=== PATIENT | female | born 1985 | race Caucasian/White ===

== ENCOUNTER 2019-04-20 11:51 | Outpatient (CLI) | payer BC ==
[~2019-04-20] VITALS: Ht 165.1 cm; Wt 88.5 kg
[~2019-04-20 11:51] MED LIST: FRS325T PO; IBP600T1 PO; OXYC-12 PO; PREN1TAB39 PO
[2019-04-20] MEDS ORDERED: AMPH15TA PO (12:08)
[2019-04-20] MEDS ORDERED: ALPR0.25 PO (12:08)
[2019-04-20 13:16] LABS: BASOPHILS % (AUTO) 1 % (0-10); EOSINOPHILS # (AUTO) 0.1 10^3/uL (0.0-0.3); EOSINOPHILS % (AUTO) 2 % (0-10); HEMATOCRIT 41 % (35-52); HEMOGLOBIN 14.1 G/DL (11.5-16.0); LYMPHOCYTES # (AUTO) 2.1 X 10^3 (1.0-4.0); LYMPHOCYTES % (AUTO) 36 % (12-44); MEAN CORPUSCULAR HEMOGLOBIN 31 PG (25-34); MEAN CORPUSCULAR HGB CONC 35 G/DL (32-36); MEAN CORPUSCULAR VOLUME 89 FL (80-99); MEAN PLATELET VOLUME 11.5 FL (7.4-10.4); MONOCYTES # (AUTO) 0.4 X 10^3 (0.0-1.0); MONOCYTES % (AUTO) 6 % (0-12); NEUTROPHILS # (AUTO) 3.3 X 10^3 (1.8-7.8); NEUTROPHILS % (AUTO) 55 % (42-75); PLATELET COUNT 269 10^3/uL (130-400); RED CELL DISTRIBUTION WIDTH 12.2 % (10.0-14.5); WHITE BLOOD COUNT 5.9 10^3/uL (4.3-11.0)
[2019-04-23] MEDS ORDERED: IBUP-844 PO (09:42)
[2019-04-23] MEDS ORDERED: SIME80TA16 PO (09:42)
[2019-04-23] MEDS ORDERED: HYDR-34 PO (09:42)
[2019-04-23] MEDS ORDERED: DOCU100C37 PO (09:42)
== END 2019-04-20 14:32 | disposition home or self-care (01) ==
LOC: PREOP 11:51
PROVIDERS: ATTEND Obstetrics & Gynecology
DX: Z01.818 Encounter for other preprocedural examination (principal); Z11.2 Encounter for screening for other bacterial diseases; D06.0 Carcinoma in situ of endocervix
CPT/HCPCS: 36415; 85025; 86850; 86900; 86901; 87081

== ENCOUNTER 2019-04-23 09:01 | Day surgery (SDC) | payer BC ==
[2019-04-23] VITALS (10 sets, daily range): BP systolic 95–135; BP diastolic 59–86
[~2019-04-23] VITALS: Ht 165.1 cm; Wt 88.5 kg
[~2019-04-23 09:01] MED LIST changes: +ALPR0.25 PO; +AMPH15TA PO
[2019-04-23] MEDS ORDERED: BUPIVACAINE 0.25% 30 ML (SENSORCAINE) VIAL ONE (09:22)
[2019-04-23] MEDS ORDERED: LACTATED RINGERS 1,000 ML IV SCH ×2 (09:29→09:34)
--- NOTE | 2019-04-23 09:29 | Progress Note-Pre Operative ---
Pre-Operative Progress Note H&P Reviewed The H&P was reviewed, patient examined and no changes noted. 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
[2019-04-23] MEDS ORDERED: ZOLPIDEM 5 MG (AMBIEN) TAB PO PRN (09:30)
[2019-04-23] MEDS ORDERED: ONDANSETRON 4 MG/2 ML (SDV) Z0FRAN IV PRN (09:30)
[2019-04-23] MEDS ORDERED: ANTACID SUSP 30 ML UDC (MYLANTA) PO PRN (09:30)
[2019-04-23] MEDS ORDERED: KETOROLAC 30 MG/ML VIAL IV PRN (09:30)
[2019-04-23] MEDS ORDERED: DOCUSATE SODIUM 100 MG (COLACE) CAP PO PRN (09:30)
[2019-04-23] MEDS ORDERED: HYDROcodone/APAP 7.5 MG/325 MG (LORTAB, LORCET PLUS) TABLET PO PRN (09:30)
[2019-04-23] MEDS ORDERED: SIMETHICONE 80 MG (MYLICON) CHEW PO PRN (09:30)
[2019-04-23] MEDS ORDERED: CHLORASEPTIC LOZENGE MM PRN (09:30)
--- NOTE | 2019-04-23 09:31 | Discharge Inst-Women's Service ---
Discharge Inst-Women's Serv Depart Medication/Instructions New, Converted or Re-Newed RX: RX on Chart Consults/Follow Up Additional Follow Up: Yes Orders/Referrals Dr. Green in 7-10 days and in 8 weeks Activity Activity: Activity as Tolerated Driving Instructions: You May Drive (do not drive while taking hydrocodone) NO SMOKING: NO SMOKING Nothing Inside Vagina: No Douching, No Espino, No Tampons Diet Discharge Diet: No Restrictions Symptoms to Report to : Bleeding Excessive, Pain Increased, Fever Over 101 Degrees F, Vaginal Bleeding Increase, Questions/Concerns For Any Problems or Questions: Contact Your Physician Skin/Wound Care Infection Signs and Symptoms: Increased Redness, Foul Odor of Wound, Increased Drainage, Skin Itchy or Has a Rash, Increased Swelling, Temperature Above 101 F Operative Area Clean and Dry: Keep Incision Clean/Dry Stitches/[place]/Dermabond: Dermabond, Care of Stitches Bathing Instructions: ESTEFANÍA Reyes DO April 23, 2019 09:31
[2019-04-23] MEDS ORDERED: IBUP-844 PO (09:42)
[2019-04-23] MEDS ORDERED: HYDR-34 PO (09:42)
[2019-04-23] MEDS ORDERED: SIME80TA16 PO (09:42)
[2019-04-23] MEDS ORDERED: DOCU100C37 PO (09:42)
[2019-04-23] MEDS ORDERED: ceFAZolin 2 GM/50 ML NS 50 ML IV ONE (09:45)
[2019-04-23] MEDS ORDERED: metroNIDAZOLE 500MG/100ML IVPB 100 ML IV ONE (09:45)
[2019-04-23] MEDS ORDERED: MIDAZOLAM 2 MG/2 ML (VERSED) VIAL ONE ×2 (10:00→10:54)
[2019-04-23] MEDS ORDERED: ONDANSETRON 4 MG/2 ML (SDV) Z0FRAN ONE ×2 (10:01→10:53)
[2019-04-23] MEDS ORDERED: SCOPOLAMINE 1.5 MG (TRANSDERM-SCOP) PATCH ONE (10:01)
[2019-04-23] MEDS ORDERED: FAMOTIDINE 20MG/2ML IV (PEPCID) ONE (10:01)
[2019-04-23] MEDS: LACTATED RINGERS 1,000 ML IV PRN ×2 (10:12→12:00)
[2019-04-23] MEDS ORDERED: SCOPOLAMINE 1.5 MG (TRANSDERM-SCOP) PATCH TOP ONE (10:15)
[2019-04-23] MEDS ORDERED: MIDAZOLAM 2 MG/2 ML (VERSED) VIAL IV ONE (10:15)
[2019-04-23] MEDS ORDERED: ONDANSETRON 4 MG/2 ML (SDV) Z0FRAN IV ONE (10:15)
[2019-04-23] MEDS ORDERED: FAMOTIDINE 20MG/2ML IV (PEPCID) IV ONE (10:15)
[2019-04-23] MEDS ORDERED: ROCURONIUM 10 MG/ML 5 ML SYRINGE IV ONE (10:53)
[2019-04-23] MEDS ORDERED: proPOfol 200 MG/20 ML (DIPRIVAN) VIAL IV ONE (10:53)
[2019-04-23] MEDS ORDERED: DEXAMETHASONE 10 MG/ML (DECADRON) 1 ML VIAL ONE (10:53)
[2019-04-23] MEDS ORDERED: SEVOFLURANE (ULTANE) 15 ML INHAL SOLN ONE ×4 (10:53→12:20)
[2019-04-23] MEDS ORDERED: LIDOCAINE PF 2% 5 ML (XYLOCAINE) VIAL ONE (10:53)
[2019-04-23] MEDS ORDERED: fentaNYL INJECTION 100 MCG/2 ML AMP ONE (10:54)
[2019-04-23] MEDS ORDERED: PROMETHAZINE INJ 25 MG/ML (PHENERGAN) AMP IVP ONE (12:45)
[2019-04-23] MEDS ORDERED: ONDANSETRON 4 MG/2 ML (SDV) Z0FRAN IVP PRN (12:45)
[2019-04-23] MEDS ORDERED: KETOROLAC 30 MG/ML VIAL IVP ONE (12:45)
[2019-04-23] MEDS ORDERED: HYDROmorphone 2 MG/ML VIAL (DILAUDID) IV ONE (12:45)
[2019-04-23] MEDS ORDERED: morphine INJ 10 MG/ML 1ML (SYR OR VIAL) IVP ONE (12:45)
[2019-04-23] MEDS ORDERED: MEPERIDINE (DEMEROL) INJ 50 MG/ML IVP ONE (12:45)
[2019-04-23] MEDS ORDERED: fentaNYL INJECTION 100 MCG/2 ML AMP IVP ONE (12:45)
[2019-04-23] MEDS ORDERED: KETOROLAC 30 MG/ML VIAL ONE (12:56)
[2019-04-23] MEDS ORDERED: morphine INJ 10 MG/ML 1ML (SYR OR VIAL) ONE (12:56)
--- NOTE | 2019-04-23 13:40 | NUR ---
MECHE JAY admitted to room , with an admitting diagnosis of post op hysterectomy, on 04-23-19 from recovery via bed, accompanied by staff.MECHE JAY introduced to surroundings, call light, bed controls, phone, TV, temperature control, lights, meal times, smoking policy, visitor policy, side rail policy, bathrooms and showers. Patient Rights given to patient in the handbook. MECHE JAY verbalizes understanding that [facility] is not responsible for the loss or damage to any personal effects or valuables that are kept in the patients posession during their hospitalization. The following Patient Care Plans were discussed with the patient: Discharge Planning, pain management, post op care. MECHE JAY verbalizes understanding of Interdisciplinary Patient Education. Patient and/or family were informed about the Rapid Response Team and its purpose.
--- NOTE | 2019-04-23 14:40 | NUR ---
crackers given and ice water. family at bedside. scd's on. denies further need.
[2019-04-23] MEDS ORDERED: HYDROcodone/APAP 7.5 MG/325 MG (LORTAB, LORCET PLUS) TABLET PO ONE (15:00)
--- NOTE | 2019-04-23 19:00 | NUR ---
MECHE JAY demonstrates understanding of discharge instructions and accurately returns instructions upon questioning. Copy of Post-Discharge Instructions and Medication Discharge Instructions given to patient. MECHE JAY is able to manage continuing needs after discharge. Patients belongings returned to patient. Skin dry and intact; no breakdown noted. Patient discharged from [id number] on 04-23-19 at 1900. MECHE JAY left floor via w/c, accompanied by staff and family .
--- NOTE | 2019-04-23 23:03 | OPERATIVE REPORT ---
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 PROCEDURE: Robotic-assisted total laparoscopic hysterectomy with bilateral salpingectomy and right oophorectomy. SURGEON: Jd Gomez DO ANESTHESIA: General endotracheal. ESTIMATED BLOOD LOSS: Minimal. URINE OUTPUT: 300 mL clear at the end of procedure. FLUIDS: 1400 mL of lactated Ringer solution. FINDINGS: Grossly normal appearing uterus, bilateral fallopian tubes, grossly normal appearing left ovary, grossly normal appearing cervix, vagina and external female genitalia. The right ovary is densely adhesed to the right pelvic sidewall consistent with a history of either endometrioma or hemorrhagic cyst rupture in the past. There are adhesions of this as well to her colon. SPECIMENS SENT: Uterus, bilateral fallopian tubes and right ovary. INDICATIONS FOR PROCEDURE: This 34-year-old female. The patient has consulted me for an abnormal Pap smear and colposcopy. Biopsy was taken, which revealed a carcinoma in situ and endometrial curetting revealed adenocarcinoma in situ. I had the patient returned to discuss care plan including gave her the option of a conization due to positive endocervical component, but I recommended we proceed with a LEEP. She wished for a complete excisional procedure in which case, we did discuss rather than doing a D and C or endometrial biopsy with a LEEP. We discussed removal of the uterus. I discussed with the patient potential for invasive carcinoma that might be encountered in this procedure. However, due to the nature of the biopsy being in situ there were likely not be deep invasion and if there were it would be a little to minimal most likely. The possibility for deep invasion; however, was not excluded. We also discussed the risks of the procedure in detail including risk of bleeding, infection, damage to surrounding structures including, but not limited to bowel, bladder, ureter, kidneys, possible need for reoperation if anything should be damaged, possible long-term repercussions, possible laparotomy, possibility of risk from anesthesia and even . After everything were discussed with the patient in detail, consent was obtained in the preoperative area and the patient was taken to the operating room. DESCRIPTION OF PROCEDURE IN DETAIL: Once in the operating room, general anesthesia was found to be adequate. The patient was placed in dorsal lithotomy position, prepped and draped in normal sterile fashion. A Marsh catheter was placed at that point and time out was performed, I then placed a weighted speculum into the patient's vagina. Right angle retractor was used to visualize the cervix, which was grasped at 12 o'clock position using a long Allis clamp and 0 Vicryl suture was then placed in the anterior lip of the cervix and this was used in my retraction point and the Allis clamp was then removed. I then gently sound the uterine cavity depth was found to be 8 cm. I then gently dilated the cervix using Hegar dilators to allow placement of the Denisa uterine manipulator. An 8 cm tip and a 3.5 cm colpotomy ring was then placed. The uterine manipulator tip was placed within the endometrium. The balloon was deployed and the colpotomy ring was advanced around the vaginal fornix. Once this was done, I performed a change of gloves and took my attention to the abdomen where infraumbilically I infiltrated this area using 0.25% Marcaine. I made an 8 mm incision with a knife and directed a Veress needle through the incision until the intraperitoneal placement was confirmed using a saline drop test. An opening pressure of 5 mmHg was noted. I proceeded to maximum pressure of 15 mmHg, at which point I removed the Veress needle and introduced blunt da Elliott camera trocar directly into the incision. Once it is in place, I am able to confirm intraoperative placement using the da Elliott laparoscope. I then had the patient placed in steep Trendelenburg and made to visualize all my anatomy as demonstrated above. A brief scan of the upper abdominal anatomy appears grossly normal. I then placed two lateral trocars approximately 10 cm lateral to my infraumbilical trocar. These were both 8 mm incisions. The skin was infiltrated using 0.25% Marcaine, 8 mm incisions were made with a knife and the trocars were placed under direct visualization of the laparoscope. Once these trocars were in place, I brought in the da Elliott robot and docked in the appropriate fashion placing the vessel sealer in her left hand and monopolar bhavna in the right hand. I began with taking down the adhesions of this right ovary. In doing so, I took extra special care to not involve the bowel, which it is adhesed to. In the process of doing this, I actually ended up cutting into the ovary and ovarian stroma itself causing some bleeding of that ovary. Once it was freed up, I decided to remove that ovary due to the significant bleeding and damage as well as the chronic scar and adhesions involved with it. I started the uteroovarian ligament, bipolar cauterized and transected using the vessel sealer then grasped the infundibulopelvic ligament, bipolar cauterized and transected using the vessel sealer. Due to the fact that the ovary was bleeding, I took out both blood supplies and then starting at the infundibulopelvic ligament I took this dissection to the round ligament, bipolar cauterized and transected using the vessel sealer. Then I am able to grasp the entire broad ligament. I bipolar cauterized and transected using the vessel sealer down to the level of the lower uterine segment. I traced the ureter away from my dissection field the entire time I do this. I then the anterior and posterior leaflets of the broad ligament. The anterior leaflet dissection was taken around the anterior vaginal fornix. Posterior leaflet was taken around to the posterior vaginal fornix. This allows me to skeletonize the uterine vessels laterally, which I then bipolar cauterized and transected using the vessel sealer. A similar dissection is performed on the left side; however, sparing the ovary I assured at the uteroovarian ligament, bipolar cauterized and transected using vessel sealer. I created a window in the mesosalpinx and took this laterally using monopolar bhavna, amputating the fallopian tube from its surrounding blood supply and the mesosalpinx. I then grasped the round ligament, bipolar cauterized and transected using the vessel sealer. I am able to grasp the entire broad ligament. I bipolar cauterized and transected using vessel sealer down to the level of the lower uterine segment, at which point I the anterior and posterior leaflets. The anterior leaflet was taken down to the anterior vaginal fornix. The posterior leaflet dissection was taken around to the posterior vaginal fornix. This allowed me to skeletonize the uterine vessels laterally, which were then bipolar cauterized and transected using the vessel sealer. I then performed a colpotomy at 12 o'clock position. Using monopolar bhavna I took this circumferentially around the vaginal fornix amputating the cervix away from the vagina. I then removed the entire specimen through the vagina. I proceeded with closing the vaginal cuff and the lateral vaginal apices using 2-0 Vicryl suture in a [id number] fashion copiously spinning up to the uterosacral ligaments. I then closed the remainder of the cuff using 2-0 V-Loc in a running fashion, after which there was no active bleeding noted from any of my dissection planes. I then undocked the da Elliott robot and approached the case laparoscopically once more. I copiously irrigated the pelvis using normal saline. Once again, there was no active bleeding noted from any of my dissection planes. I placed FloSeal hemostatic agent over all my planes of dissection, after which I had the patient taken out of steep Trendelenburg and suctioned out any excess fluid and blood that runs down. I then removed the lateral trocars under direct visualization of the laparoscope. The infraumbilical trocar was left in place to release insufflation and to introduce 10 mL of 0.25% Marcaine into the peritoneal cavity for postoperative pain management. I then removed this trocar site as well. The skin was then reapproximated using 4-0 Monocryl interrupted subcuticular stitch. Dermabond was applied to the incision and Band-Aids were placed over these. The Marsh catheter was left in place. The patient tolerated the procedure well and was taken to recovery area in stable condition. Lap and sponge count was correct at the end of the procedure. Instrument count was correct as well. Two grams of Ancef and 500 mg of Flagyl were given preoperatively for infection prophylaxis. Job ID: [id number] DocumentID: [id number] Dictated Date: 04/23/2019 17:20:15 Materials And Processes Manager Date: 04/23/2019 23:02:38 Dictated By: JD GOMEZ DO
[2019-04-24] MEDS ORDERED: IBUPROFEN 600 MG (MOTRIN) TAB PO PRN (02:15)
== END 2019-04-23 19:00 | disposition home or self-care (01) ==
LOC: SDC 09:01 → LDRP 13:40 → SDC 19:00
PROVIDERS: ATTEND Obstetrics & Gynecology
DX: D06.0 Carcinoma in situ of endocervix (principal); N80.0 Endometriosis of uterus; N80.1 Endometriosis of ovary; J45.909 Unspecified asthma, uncomplicated; K21.9 Gastro-esophageal reflux disease without esophagitis; F17.210 Nicotine dependence, cigarettes, uncomplicated; E66.9 Obesity, unspecified; Z68.32 Body mass index [BMI] 32.0-32.9, adult; Z79.899 Other long term (current) drug therapy
CPT/HCPCS: 84703; 86850; 86900; 86901; 88309; 94664

== ENCOUNTER 2020-01-26 23:27 | Emergency (ER) | payer BC ==
[~2020-01-26] VITALS: Ht 165.1 cm; Wt 86.1 kg
[~2020-01-26 23:27] MED LIST changes: +DOCU100C37 PO; +HYDR-34 PO; +IBUP-844 PO; +SIME80TA16 PO
[2020-01-26] MEDS ORDERED: ANTACID SUSP 30 ML UDC (MYLANTA) PO ONE (23:45)
[2020-01-26] MEDS ORDERED: ONDANSETRON 4 MG/2 ML (SDV) Z0FRAN IVP ONE (23:45)
[2020-01-26] MEDS ORDERED: LIDOCAINE 2% VISCOUS 15 ML UDC PO ONE (23:45)
[2020-01-26] MEDS ORDERED: FAMOTIDINE 20MG/2ML IV (PEPCID) IVP ONE (23:45)
[2020-01-26 23:53] LABS: BASOPHILS % (AUTO) 0 % (0-10); EOSINOPHILS # (AUTO) 0.2 10^3/uL (0.0-0.3); EOSINOPHILS % (AUTO) 2 % (0-10); HEMATOCRIT 40 % (35-52); HEMOGLOBIN 13.8 G/DL (11.5-16.0); LYMPHOCYTES # (AUTO) 3.4 X 10^3 (1.0-4.0); LYMPHOCYTES % (AUTO) 28 % (12-44); MEAN CORPUSCULAR HEMOGLOBIN 30 PG (25-34); MEAN CORPUSCULAR HGB CONC 35 G/DL (32-36); MEAN CORPUSCULAR VOLUME 87 FL (80-99); MEAN PLATELET VOLUME 10.2 FL (7.4-10.4); MONOCYTES # (AUTO) 0.8 X 10^3 (0.0-1.0); MONOCYTES % (AUTO) 7 % (0-12); NEUTROPHILS # (AUTO) 7.5 X 10^3 (1.8-7.8); NEUTROPHILS % (AUTO) 63 % (42-75); PLATELET COUNT 313 10^3/uL (130-400); RED CELL DISTRIBUTION WIDTH 12.2 % (10.0-14.5); WHITE BLOOD COUNT 11.9 10^3/uL (4.3-11.0)
--- NOTE | 2020-01-26 23:55 | ED Chest Pain ---
General Chief Complaint: Chest Pain Stated Complaint: CP,RT ARM PAIN,SOB Nursing Triage Note: C/O CHEST PAIN "FEELS LIKE PRESSURE PUSHING FRONT AND BACK TOGETHER" Nursing Sepsis Screen: No Definite Risk Source: patient Exam Limitations: no limitations History of Present Illness Date Seen by Provider: Jan 26, 2020 Time Seen by Provider: 23:30 Initial Comments This 34-year-old woman presents to the emergency room with sudden onset of chest pressure radiating from the front central chest to her back. It is worse with inspiration. Pain started around 21:00 while sitting on the couch. She has associated nausea. She tried taking a shower and taking alprazolam that did not improve her symptoms much. She states her pain was 8/10 at onset. It is now 1/10. She denies fever or shortness of breath. She has had a mild dry cough. She quit smoking tobacco about 8 months ago. She occasionally drinks alcohol about twice a month. She denies any drug use. She denies any travel or recent sedentary time. She reports a remote history of GERD which she states has returned the last couple of days. Allergies and Home Medications Allergies Coded Allergies: Penicillins (Verified Allergy, Mild, HIVES, pt has received Ancef in the past w/o issue, 04/23/19) Home Medications Alprazolam 0.25 Mg Tablet, 0.25 MG PO TID PRN for ANXIETY, (Reported) Dextroamphetamine/Amphetamine 15 Mg Tablet, 15 MG PO DAILY, (Reported) Docusate Sodium 100 Mg Capsule, 100 MG PO BID PRN for CONSTIPATION-1ST LINE Prescribed by: ESTEFANÍA GOMEZ on [birth year]1942 Hydrocodone Bit/Acetaminophen 1 Ea Tablet, 2 EA PO Q6H PRN for Pain-See Instructions Prescribed by: ESTEFANÍA GOMEZ on 04/23/19941 Ibuprofen 600 Mg Tablet, 600 MG PO Q6H PRN for PAIN-MODERATE Prescribed by: ESTEFANÍA GOMEZ on 04/23/19941 Simethicone 80 Mg Tab.chew, 40 MG PO TID PRN for INDIGESTION 2ND LINE Prescribed by: ESTEFANÍA GOMEZ on 04/23/19941 Patient Home Medication List Home Medication List Reviewed: Yes Review of Systems Review of Systems Constitutional: no symptoms reported EENTM: No Symptoms Reported Respiratory: See HPI Cardiovascular: See HPI Gastrointestinal: See HPI Genitourinary: No Symptoms Reported Musculoskeletal: no symptoms reported Skin: no symptoms reported Psychiatric/Neurological: No Symptoms Reported Endocrine: No Symptoms Reported Hematologic/Lymphatic: No Symptoms Reported Past Gdoviez-Kstfoq-Jjteij Hx Past Med/Social Hx: Reviewed and Corrections made Patient Social History Type Used: Cigarettes 2nd Hand Smoke Exposure: No Recent Foreign Travel: No Contact w/Someone Who Travel: No Recent Infectious Disease Expo: No Recent Hopitalizations: No Seasonal Allergies Seasonal Allergies: Yes Past Medical History Surgeries: Yes (WISDOM TEETH, LABIA LYMPH NODE REMOVED) Section, Hysterectomy, Oophorectomy Respiratory: Yes (DOES NOT USE INHALER) Asthma Cardiac: No Neurological: No : No Reproductive Disorders: No Female Reproductive Disorders: Menstrual Problems, Ovarian Cyst Sexually Transmitted Disease: No HIV/AIDS: No Genitourinary: No Gastrointestinal: Yes Gastroesophageal Reflux Musculoskeletal: No Endocrine: No HEENT: Yes (GLASSES/CONTACTS) Loss of Vision: Bilateral Hearing Impairment: Denies Cancer: Yes Cervical Did You Recieve Any Treatments: Yes What Type of Treatment Did You: Surgical Intervention Psychosocial: Yes ADD/ADHD, Anxiety Integumentary: No Blood Disorders: No Adverse Reaction/Blood Tranf: No (N/A) Physical Exam Vital Signs Vital Signs - First Documented 01/26/20 23:31 Temp 36.5 Pulse 111 Resp 20 B/P (MAP) 142/97 (112) Pulse Ox 98 O2 Delivery Room Air Capillary Refill : Less Than 3 Seconds Height, Weight, BMI Height: 5'5.00" Weight: 195lbs. 3.0oz. 88.428902ca; 31.00 BMI Method: General Appearance: WD/WN, Anxious (mildly) HEENT: PERRL/EOMI, Normal ENT Inspection Neck: Normal Inspection Respiratory: Lungs Clear, Normal Breath Sounds, No Accessory Muscle Use, No Respiratory Distress, Other (anterior chest slightly tender to palpation) Cardiovascular: No Edema, No Murmur, Tachycardia, Other (Anterior chest wall mildly TTP) Gastrointestinal: Normal Bowel Sounds, Non Tender, Soft Extremity: Normal Inspection, Non Tender, No Calf Tenderness, No Pedal Edema Neurologic/Psychiatric: Alert, Oriented x3, No Motor/Sensory Deficits, geotechnical engineer II- XII Norm as Tested, Other (slightly anxious) Skin: Normal Color, Warm/Dry Progress/Results/Core Measures Results/Orders Lab Results Laboratory Tests Test 01/26/20 23:42 2/26/20 01:41 Range/Units White Blood Count 11.9 H 4.3-11.0 10^3/uL Red Blood Count 4.54 4.35-5.85 10^6/uL Hemoglobin 13.8 11.5-16.0 G/DL Hematocrit 40 35-52 % Mean Corpuscular Volume 87 80-99 FL Mean Corpuscular Hemoglobin 30 25-34 PG Mean Corpuscular Hemoglobin Concent 35 32-36 G/DL Red Cell Distribution Width 12.2 10.0-14.5 % Platelet Count 313 130-400 10^3/uL Mean Platelet Volume 10.2 7.4-10.4 FL Neutrophils (%) (Auto) 63 42-75 % Lymphocytes (%) (Auto) 28 12-44 % Monocytes (%) (Auto) 7 0-12 % Eosinophils (%) (Auto) 2 0-10 % Basophils (%) (Auto) 0 0-10 % Neutrophils # (Auto) 7.5 1.8-7.8 X 10^3 Lymphocytes # (Auto) 3.4 1.0-4.0 X 10^3 Monocytes # (Auto) 0.8 0.0-1.0 X 10^3 Eosinophils # (Auto) 0.2 0.0-0.3 10^3/uL Basophils # (Auto) 0.0 0.0-0.1 10^3/uL Prothrombin Time 13.6 12.2-14.7 SEC INR Comment 1.0 0.8-1.4 Activated Partial Thromboplast Time 36 H 24-35 SEC Sodium Level 138 135-145 MMOL/L Potassium Level 3.6 3.6-5.0 MMOL/L Chloride Level 107 98-107 MMOL/L Carbon Dioxide Level 19 L 21-32 MMOL/L Anion Gap 12 5-14 MMOL/L Blood Urea Nitrogen 13 7-18 MG/DL Creatinine 0.89 0.60-1.30 MG/DL Estimat Glomerular Filtration Rate > 60 BUN/Creatinine Ratio 15 Glucose Level 143 H 70-105 MG/DL Calcium Level 9.2 8.5-10.1 MG/DL Corrected Calcium 8.8 8.5-10.1 MG/DL Magnesium Level 2.0 1.6-2.4 MG/DL Total Bilirubin 0.3 0.1-1.0 MG/DL Aspartate Amino Transf (AST/SGOT) 14 5-34 U/L Alanine Aminotransferase (ALT/SGPT) 14 0-55 U/L Alkaline Phosphatase 64 40-136 U/L Myoglobin 36.7 10.0-92.0 NG/ML Troponin I < 0.028 < 0.028 <0.028 NG/ML Total Protein 7.4 6.4-8.2 GM/DL Albumin 4.5 3.2-4.5 GM/DL My Orders Orders - MYNOR MADSEN MD Ondansetron Injection (Zofran Injectio (01/26/20 23:45) Famotidine Injection (Pepcid Injection) (01/26/20 23:45) Lidocaine 2% Viscous 15 Ml (Xylocaine Vi (01/26/20 23:45) Antacid Suspension (Mylanta Suspension (01/26/20 23:45) Cbc With Automated Diff (01/26/20 23:42) Magnesium (01/26/20 23:42) Ekg Tracing (01/26/20 23:42) Comprehensive Metabolic Panel (01/26/20 23:42) Myoglobin Serum (01/26/20 23:42) Protime With Inr (01/26/20 23:42) Partial Thromboplastin Time (01/26/20 23:42) O2 (01/26/20 23:42) Monitor-Rhythm Ecg Trace Only (01/26/20 23:42) Ed Iv/Invasive Line Start (01/26/20 23:42) Troponin I (01/26/20 23:42) Chest 1 View, Ap/Pa Only (01/27/20 00:01) Troponin I (01/27/20 01:45) Ekg Tracing (01/27/20 01:02) Ketorolac Injection (Toradol Injection) (01/27/20 02:30) Medications Given in ED Current Medications Medications Dose Ordered Sig/Carlos Route Start Time Stop Time Status Last Admin Dose Admin Al Hydrox/Mg Hydrox/Simethicone 30 ml ONCE ONCE PO 01/26/20 23:45 01/26/20 23:46 DC 01/26/20 23:47 30 ML Famotidine 20 mg ONCE ONCE IVP 01/26/20 23:45 2/25/20 23:46 DC 01/26/20 23:47 20 MG Ketorolac Tromethamine 30 mg ONCE ONCE IVP 01/27/20 02:30 01/27/20 02:32 DC 01/27/20 02:36 30 MG Lidocaine HCl 15 ml ONCE ONCE PO 01/26/20 23:45 01/26/20 23:46 DC 01/26/20 23:47 15 ML Ondansetron HCl 4 mg ONCE ONCE IVP 01/26/20 23:45 01/26/20 23:46 DC 01/26/20 23:47 4 MG Vital Signs/I&O 01/26/20 01/26/20 01/27/20 23:31 23:31 03:17 Temp 36.5 36.8 Pulse 111 78 Resp 20 16 B/P (MAP) 142/97 (112) 105/68 (112) Pulse Ox 98 99 O2 Delivery Room Air Room Air Blood Pressure Mean: 112 Progress Progress Note #1: Time: 23:56 Progress Note Chest pain workup is being pursued. A trial of Zofran, Pepcid, and GI cocktail is being given. Progress Note #2: Time: 00:07 Progress Note Pain improved with GI cocktail. Patient is calmer and HR is now in the 80's. Progress Note #3: Progress Note Repeat troponin was negative. EKG repeat was also unremarkable. Patient did have some mild rebound of pain. This was further treated with Toradol successfully. Patient's pain was atypical in nature and cardiopulmonary workup was unremarkable. Patient was dismissed home to outpatient follow-up. Initial ECG Impression Date: Jan 26, 2020 Initial ECG Impression Time: 22:36 Initial ECG Rate: 98 Initial ECG Rhythm: S.Tach Initial ECG Intervals: Normal Comment Sinus tachycardia with no ST elevation or depression. No abnormal intervals or axis deviation. EKG : EKG Time: 01:38 Rate: 77 Rhythm: Normal Sinus Intervals: Normal ECG Impression: Normal Comment Normal sinus rhythm with no ST elevation or depression. No abnormal intervals or axis deviation. Diagnostic Imaging Diagonstic Imaging: Xray Plain Films/CT/US/NM/MRI: chest Comments Chest x-ray viewed by me. Report not yet available. No acute abnormalities appreciated. Departure Impression Primary Impression: Atypical chest pain Additional Impression: Nausea Disposition: 01 HOME, SELF-CARE Condition: Improved Departure-Patient Inst. Decision time for Depature: 03:04 Referrals: ROXANE OSBORNE DO (PCP/Family) Primary Care Physician Patient Instructions: Chest Pain (DC), Acid Reflux (Gastroesophageal Reflux Disease), Adult (DC) Add. Discharge Instructions: Follow-up with your primary care provider soon as possible. Please call her office this morning to schedule the appointment. In the meantime, please take dual antiacid therapy with Pepcid (or generic famotidine) 20 mg twice daily and Prilosec (or generic omeprazole) 20 mg daily. Avoid the following: Eating large meals, eating close to bedtime, caffeine, carbonation, citrus fruits and juices, tomato products, alcohol, tobacco, NSAID medications such as ibuprofen or naproxen, mints, spicy foods, fatty or greasy foods, or anything else you know irritates your stomach. You may take Tylenol (acetaminophen) up to 1000 mg every 6 hours as needed for pain. Return to the emergency room if you have escalating symptoms despite the above treatments. All discharge instructions reviewed with patient and/or family. Voiced understanding. Copy Copies To 1: ROXANE OSBORNE JOSHUA T MD Jan 26, 2020 23:55
[2020-01-27 00:04] LABS: PROTHROMBIN TIME PATIENT 13.6 SEC (12.2-14.7)
[2020-01-27 00:15] LABS: ALANINE AMINOTRANSFERASE 14 U/L (0-55); ALBUMIN 4.5 GM/DL (3.2-4.5); ALKALINE PHOSPHATASE 64 U/L (40-136); BILIRUBIN,TOTAL 0.3 MG/DL (0.1-1.0); BUN/CREATININE RATIO 15; CALCIUM 9.2 MG/DL (8.5-10.1); CARBON DIOXIDE 19 MMOL/L (21-32); CHLORIDE 107 MMOL/L (98-107); CREATININE SERUM 0.89 MG/DL (0.60-1.30); GFR ESTIMATED > 60; GLUCOSE 143 MG/DL (70-105); POTASSIUM 3.6 MMOL/L (3.6-5.0); SODIUM 138 MMOL/L (135-145); TOTAL PROTEIN 7.4 GM/DL (6.4-8.2)
[2020-01-27] MEDS ORDERED: KETOROLAC 30 MG/ML VIAL IVP ONE (02:30)
[2020-01-27 03:17] VITALS: BP 105/68
--- NOTE | 2020-01-27 07:20 | Diagnostic Imaging Report ---
Indication: Chest pain Portable chest 12:19 AM Heart size and pulmonary vascularity are normal. Lungs are clear. There are no effusions or pneumothoraces. IMPRESSION: Negative chest Dictated by: Dictated on workstation # [id number]
== END 2020-01-27 03:19 | disposition home or self-care (01) ==
LOC: EDUNIT# 23:27 → ER 23:29
DX: R07.89 Other chest pain (principal); R11.0 Nausea; K21.9 Gastro-esophageal reflux disease without esophagitis; F41.9 Anxiety disorder, unspecified; F90.9 Attention-deficit hyperactivity disorder, unspecified type; Z85.41 Personal history of malignant neoplasm of cervix uteri; Z88.0 Allergy status to penicillin
CPT/HCPCS: 36415; 71045; 80053; 83735; 83874; 84484; 85025; 85610; 85730; 93005; 93041; 96374; 96375

== ENCOUNTER 2020-11-18 05:37 | Outpatient (RCR) | payer BC ==
[~2020-11-18] VITALS: Ht 165 cm; Wt 88.6 kg
[~2020-11-18 05:37] MED LIST changes: +ESCI5TAB12 PO; +FAMO20TA3 PO; +LISD40CA3 PO; +OMEP20TA7 PO
== END 2020-11-18 11:37 | disposition home or self-care (01) ==
LOC: PREOP 05:37
PROVIDERS: ATTEND Surgery
DX: Z01.812 Encounter for preprocedural laboratory examination (principal); K62.5 Hemorrhage of anus and rectum; Z20.828 Contact with and (suspected) exposure to other viral communicable diseases
CPT/HCPCS: 87635

== ENCOUNTER 2020-11-21 07:13 | Day surgery (SDC) | payer BC ==
[~2020-11-21] VITALS: Ht 165 cm; Wt 88.6 kg
[2020-11-21] VITALS (10 sets, daily range): BP systolic 103–115; BP diastolic 53–74
[2020-11-21] MEDS ORDERED: MIDAZOLAM 2 MG/2 ML (VERSED) VIAL ONE (07:18)
[2020-11-21] MEDS ORDERED: PROPOFOL INJECTION 50 ML IV ONE ×2 (07:18→09:00)
[2020-11-21] MEDS ORDERED: LACTATED RINGERS 1,000 ML IV STA (07:22)
[2020-11-21] MEDS ORDERED: LACTATED RINGERS 1,000 ML IV ONE (07:30)
--- NOTE | 2020-11-21 08:13 | Progress Note-Pre Operative ---
Pre-Operative Progress Note H&P Reviewed The H&P was reviewed, patient examined and no changes noted. Time Seen by Provider: 08:10 Date H&P Reviewed: Nov 21, 2020 Time H&P Reviewed: 08:08 Pre-Operative Diagnosis: Rectal bleed NORM KHAN DO Nov 21, 2020 08:13
--- NOTE | 2020-11-21 09:17 | Progress Note-Post Operative ---
Post-Operative Progess Note Surgeon (s)/Generator Assembler (s) Surgeon NORM KHAN DO Generator Assembler: none Pre-Operative Diagnosis Rectal bleed Post-Operative Diagnosis polyp diverticula int hemorrhoids Procedure & Operative Findings Date of Procedure 11/21/20 Procedure Performed/Findings colon with snare Anesthesia Type IV sedation by KOSHER BUTCHER Estimated Blood Loss Estimated blood loss (mL): scant Specimens/Packing Specimens Removed sigmoid polyp NORM KHAN DO Nov 21, 2020 09:17
--- NOTE | 2020-11-21 09:18 | Endoscopy Discharge Instruct ---
Endo Procedure/Findings Findings 1.: Polyp 2.: Diverticulosis 3.: Internal Hemorrhoids Discharge Instructions - Activity: You might feel a little sleepy until tomorrow. This is due to the medicine you received to relax you. Until tomorrow, you should: NOT drive a car, operate machinery or power tools. NOT drink any alcoholic beverages. NOT make any important decisions or sign importortant papers. Do not return to work until tomorrow, unless otherwise instructed. Resume previous activities tomorrow. Diet: Start by taking liquids. If you tolerate liquids, advance to solid food. 1.: Colonscopy in 5 years Notify Physician - If you experience excessive bleeding, unusual abdominal pain, fever, or chest pain, contact your doctor immediately. NORM KHAN DO Nov 21, 2020 09:18
--- NOTE | 2020-11-21 12:21 | Anesthesia-General Post-Op ---
MAC Patient Condition Mental Status/LOC: Same as Preop Cardiovascular: Satisfactory Nausea/Vomiting: Absent Respiratory: Satisfactory Pain: Controlled Complications: Absent Post Op Complications Complications None Follow Up Care/Instructions Patient Instructions None needed. Anesthesiology Discharge Order Discharge Order Patient is doing well, no complaints, stable vital signs, no apparent adverse anesthesia problems. No complications reported per nursing. ANITRA BETANCOURT CRNA Nov 21, 2020 12:21
--- NOTE | 2020-11-21 20:10 | OPERATIVE REPORT ---
DATE OF SERVICE: PREOPERATIVE DIAGNOSIS: Rectal bleed. POSTOPERATIVE DIAGNOSIS: Colon polyps, diverticula, internal hemorrhoids. PROCEDURE: Colonoscopy with snare polypectomy. SURGEON: Zechariah Michelle DO MANAGER STATISTICAL: None. ANESTHESIA: IV sedation by the RAILROAD CAR LETTERER. SPECIMEN: Polyp from the descending colon. BLOOD LOSS: Scant. FLUIDS: Per anesthesia. POSTOPERATIVE CONDITION: Stable. INDICATION FOR PROCEDURE: The patient is a 35-year-old female, who had some rectal bleeding, needed a workup. FINDINGS: The patient had one small polyp. She also had some diverticula and some internal hemorrhoids. PROCEDURE NOTE: After informed consent was obtained, the patient was brought to the endoscopy suite, placed in bed in left lateral decubitus position. She was administered IV sedation by the RAILROAD [employer]ER who then monitored her vitals the entire time, heart rate, blood pressure and pulse ox. Scope was inserted. On the way in, noted some diverticula, took a picture. Pushed all the way about 140 cm, able to get to the cecum, took a picture of appendiceal orifice and then noted the ileocecal valve, slowly withdrew the scope insufflating to look circumferentially at the foley looking the cecum, up the ascending colon to the hepatic flexure, then down the transverse colon, splenic flexure, into the descending colon and saw some more diverticula and then a soft, flat polyp, I elected to do a snare polypectomy of this, got most of it, but looked like there was a little bit left behind, we used the biopsy forceps to remove and then continued into the sigmoid and finally into the rectum, retroflexed in the rectal vault, saw some internal hemorrhoids, took a picture of this and then removed the scope. The patient tolerated the procedure. She was recovered in endoscopy suite. Job ID: [id number] DocumentID: [id number] Dictated Date: 11/21/2020 14:52:09 Restaurant Service Manager Date: 11/21/2020 20:09:02 Dictated By: ZECHARIAH MICHELLE DO [facility]ENTERMona
== END 2020-11-21 10:10 | disposition home or self-care (01) ==
LOC: ENDO 07:13
PROVIDERS: ATTEND Surgery
DX: K62.5 Hemorrhage of anus and rectum (principal); K63.5 Polyp of colon; K57.30 Diverticulosis of large intestine without perforation or abscess without bleeding; K64.8 Other hemorrhoids; K59.09 Other constipation; J45.909 Unspecified asthma, uncomplicated; K21.9 Gastro-esophageal reflux disease without esophagitis; F41.9 Anxiety disorder, unspecified; F90.9 Attention-deficit hyperactivity disorder, unspecified type; E66.9 Obesity, unspecified; Z68.32 Body mass index [BMI] 32.0-32.9, adult; Z79.899 Other long term (current) drug therapy; Z88.0 Allergy status to penicillin; Z90.710 Acquired absence of both cervix and uterus; Z83.3 Family history of diabetes mellitus
CPT/HCPCS: 88305

== ENCOUNTER 2021-09-21 10:22 | Outpatient (CLI) | payer BC ==
[~2021-09-21] VITALS: Ht 165 cm; Wt 84.0 kg
[~2021-09-21 10:22] MED LIST changes: -ESCI5TAB12 PO; +ESCI5TAB16 PO
[2021-09-21] MEDS ORDERED: diphenhydrAMINE 50 MG/ML INJ (BENADRYL) IV PRN (10:30)
[2021-09-21] MEDS ORDERED: EPINEPHrine INJECTION 1 MG/ML AMP IM PRN (10:30)
[2021-09-21] MEDS ORDERED: ACETAMINOPHEN 500 MG TAB (TYLENOL) PO PRN (10:30)
[2021-09-21] MEDS ORDERED: ONDANSETRON 4 MG/2 ML (SDV) Z0FRAN IV PRN (10:30)
[2021-09-21] MEDS ORDERED: CASIRIVIMAB/IMDEVIMAB 1,200 MG in NS (IVPB) 250 ML IV ONE (10:30)
[2021-09-21 11:02] VITALS: BP 122/70
[2021-09-21 12:02] VITALS: BP 107/61
== END 2021-09-21 12:02 | disposition home or self-care (01) ==
LOC: INFUSION 10:22
PROVIDERS: ATTEND Nurse Practitioner Family
DX: U07.1 COVID-19 (principal)